=== PATIENT | male | born 1980 | race Hispanic/Latino ===

== ENCOUNTER 2017-09-13 23:03 | Emergency (ER) | payer SELFPAY ==
[2017-09-13] MEDS ORDERED: Acetaminophen 325 MG TAB ONE (23:24)
[2017-09-13] MEDS ORDERED: HYDROcodone/Acetaminophen 5/325 mg Tablet ONE (23:24)
--- NOTE | 2017-09-13 23:42 | RAD ---
CHEST ONE VIEW: RIGHT RIBS TWO VIEWS: HISTORY: Injury. Pain. COMPARISON: None. FINDINGS: CHEST: Normal cardiac silhouette. Pulmonary vessels and hilum are normal. Costophrenic angles are clear. Lung volumes are slightly diminished, likely due to poor inspiratory effort. Patchy opacity in the lung bases may represent atelectasis or chronic change. No consolidation or mass. No pneumot horax or osseous abnormalities. RIGHT RIBS: No fracture. No cortical irregularity or periosteal reaction. IMPRESSION: 1. No acute cardiopulmonary process. 2. No evidence of a right-sided rib fracture. POS: [facility]
== END 2017-09-13 23:58 | disposition home or self-care (01) ==
LOC: MADERS 23:03
DX: S20.211A Contusion of right front wall of thorax, initial encounter (principal); F17.210 Nicotine dependence, cigarettes, uncomplicated; W13.8XXA Fall from, out of or through other building or structure, initial encounter

== ENCOUNTER 2022-06-23 09:04 | Emergency (ER) | payer SELFPAY ==
[2022-06-23] MEDS ORDERED: Ibuprofen 800 MG TAB ONE (09:39)
== END 2022-06-23 10:26 | disposition home or self-care (01) ==
LOC: MADERS 09:04
DX: J06.9 Acute upper respiratory infection, unspecified (principal); F17.210 Nicotine dependence, cigarettes, uncomplicated; Z20.822 Contact with and (suspected) exposure to COVID-19
CPT/HCPCS: 87804; 99283; U0003; U0005

== ENCOUNTER 2024-01-27 12:20 | Emergency (ER) | payer SELFPAY ==
[~2024-01-27 12:20] MED LIST: DOPamine/D5W 400 mg/250 ml PREMIX ONE; EPINEPHrine 1 MG/10 ML Abboject SYRINGE ONE
[2024-01-27 14:21] LABS: ALT (SGPT) 77 U/L (8-55); AST (SGOT) 132 U/L (5-34); Albumin 3.6 g/dL (3.5-5.0); Alkaline Phosphatase 132 U/L (40-110); Anion Gap 38 mmol/L (10-20); BUN (Urea Nitrogen) 7 mg/dL (8.9-20.6); Bilirubin, Total 1.4 mg/dL (0.2-1.2); Calc. Creatinine Clearance 0 mL/min (70-130); Calcium 9.1 mg/dL (7.8-10.44); Chloride 105 mmol/L (98-107); Estimated GFR 76; Globulin 3.1 g/dL (2.4-3.5); Glucose 126 mg/dL (70-105); Potassium 5.2 mmol/L (3.5-5.1); Protein, Total 6.7 g/dL (6.0-8.3); Sodium 146 mmol/L (136-145)
[2024-01-27 14:23] LABS: Critical Call Chemistry NUR.AW2 @1423
[2024-01-27 14:43] LABS: Acetaminophen Less than 10 mcg/mL (Less than 10); Alcohol Less than 10.0 mg/dL (Less than 10); Salicylate Less than 8.0 mg/dL (Less than 8.0)
[2024-01-27 14:45] LABS: Carbon Dioxide 8 mmol/L (22-29)
[2024-01-27] MEDS ORDERED: Sodium Chloride 0.9% 1,000 ML ONE (15:37)
== END 2024-01-27 14:55 | disposition expired ==
LOC: MADERS 12:20
DX: R57.9 Shock, unspecified (principal); T14.91XA Suicide attempt, initial encounter; F17.210 Nicotine dependence, cigarettes, uncomplicated
CPT/HCPCS: 36430; 80053; 80307; 86850; 86900; 86901; 92950; 94760; 96374; 96375; J0171; J1265; J7030; P9016